=== PATIENT | male | born 1985 ===

== ENCOUNTER 2016-12-26 23:21 | Emergency (ER) | payer OTHER ==
--- NOTE | 2016-12-27 01:26 | ED NURSING NOTES ---
Clinical Report - Nurses [facility] [address] [place] [address] 12/26/2016 23:23 Patient: BRADLEY GUERIN TRIAGE Triage time 23:26. Acuity: LEVEL 3. Chief Complaint: INJURY TO THE LEFT SHOULDER. 23:30. Alert. SEPSIS SCREEN: Sepsis Screen. Negative (no infection suspected/documented). CHRISTIAN COMA SCORE: [place] Coma Scale: 15- eyes open spontaneously (4); best verbal response- oriented x 4 (5); best motor response- obeys commands (6). --23:30 Addison Loar R.N. 23:26 12/26/16. BP: 155/52. HR: 95. RR: 18. O2 saturation: 100% on room air. Temp: 97.4 F (oral). Pain level now: 04/14. --23:30 Addison Lora R.N. Weight: 90.7 kg stated. Height/Length: 66 inches Per Patient. BMI: 32.3. --23:30 Addison Lora R.N. Medications None. --23:29 Addison Lora R.N. Medication/allergy information source: the patient. --23:30 Addison Lora R.N. Allergies No Known Drug Allergy. --23:29 Addison Lora R.N. History Arrived by private vehicle. Historian: patient. Unaccompanied. Primary physician (None). This occurred (45 minutes ago). Mechanism of injury: (Was camping rolled onto shoulder in tent). ( Patient reports having the same shoulder dislocated in 201 3). 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 PAST MEDICAL HX: Tetanus status: up-to-date. Immunizations: up-to-date. SOCIAL HX: Current some days light tobacco smoker- less than 1/2 a pack per day. Occasional alcohol use. History of weekly drug use: marijuana. No infectious disease exposure. ABUSE ASSESSMENT: No report of abuse. FALL RISK ASSESSMENT: Fall risk assessment completed. No fall risk identified. NUTRITIONAL RISK ASSESSMENT: The nutritional risk assessment revealed no deficiencies. FUNCTIONAL ASSESSMENT: Functional assessment: no impairments noted. LEARNING NEEDS ASSESSMENT: The learning needs assessment revealed no barriers. SKIN INTEGRITY ASSESSMENT: Skin integrity risk assessment completed. No skin integrity risk identified. --23:30 Addison Lora R.N. PROBLEMS: no known problems. ADDITIONAL SURGERIES: no known surgeries. Interventions ID band on patient. To treatment room. --23:30 Addison Lora R.N. PHYSICAL ASSESSMENT 23:31. To room via wheelchair. GENERAL / NEURO / PSYCH: Oriented X 4. Alert. Appears in pain. EXTREMITIES: Extremity pulses are within normal limits. Neuro-vascular status intact to the extremity. Left shoulder. SKIN: Skin intact. Skin is warm and dry. --23:31 Addison Lora R.N. NURSING PROGRESS NOTES 23:31. Two patient identifiers checked. Call light placed in reach. Side rails up x 2. Bed placed in lowest position. Brakes of bed on. Patient ready for evaluation- chart flagged. --23:31 Addison Lora R.N. 23:36 12/26/2016 Site #1 started via IV in the right antecubital space with an 20g angiocath, with aseptic technique and good blood return; one attempt. Blood drawn: rainbow set. Labeled in the presence of the patient and sent to the lab. Saline lock flushed with 10 mL saline (by Addison HOPE). --23:36 Addison Lora R.N. 23:38 12/26/2016 Started bag #1 1000 mL IV Fluids IV NS (Saline); at 1000 mL/hr over 1 hour(s) via site #1 --23:43 Addison Lora R.N. 23:40 12/26/2016 Zofran (Ondansetron HCl) IVP 4 mg given over 2 minute(s) via site #1. Allergies verified and confirmed 5 rights. IV patency established. IV site checked: no pain, redness, or swelling. IV flushed thoroughly pre- and post-medication administration. --23:44 Addison Lora R.N. 23:42 12/26/2016 Dilaudid (HYDROmorphone HCl PF) IVP 1 mg given over 2 minute(s) via site #1. Allergies verified, confirmed 5 rights and sedative warning given to the patient. IV patency established. IV site checked: no pain, redness, or swelling. IV flushed thoroughly pre- and post-medication administration. --23:44 Addison Lora R.N. 23:44 Patient reports last meal at about 1730. --23:44 Addison Lora R.N. 23:44. Patient transported to radiology by stretcher with tech. --23:45 Addison Lora R.N. 23:52. Patient returned from radiology by stretcher with tech. --23:52 Addison Lora R.N. 00:08 12/27/2016 Dilaudid (HYDROmorphone HCl PF) IVP 0.5 mg given. via site #1. Allergies verified, confirmed 5 rights and sedative warning given to the patient. IV patency established. IV site checked: no pain, redness, or swelling. IV flushed thoroughly pre- and post-medication administration. --00:20 Addison Lora R.N. 00:19 12/27/2016 Dilaudid (HYDROmorphone HCl PF) IVP 0.5 mg given over 2 minute(s) via site #1. Allergies verified, confirmed 5 rights and sedative warning given. IV patency established. IV site checked: no pain, redness, or swelling. IV flushed thoroughly pre- and post-medication administration. IVP given by RN. --00:24 Addison Rosales R.N. ( Pt repositioned for comfort, head of bed reclined.). --00:38 Wanda Medina R.N. 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 --00:53 Addison Lora R.N. 00:43 See anesthesia record. --00:55 Addison Lora R.N. 00:51 12/27/2016 IV Fluids IV NS Bag Change: bag #1 infused. Total amount infused: 1000. STARTED bag #2 at 1000 mL/hr. IV patency established. IV site checked: no pain, redness, or swelling. IV flushed thoroughly. (per verbal order). --00:58 Addison Lora R.N. 00:[address] Adams. --01:01 Addison Lora R.N. 01:01 12/27/16. BP: 121/74. HR: 102. RR: 17. O2 saturation: 98% on nasal cannula at 2 liters/minute. --01:02 Addison Lora R.N. 01:04 Post reduction x-ray taken. --01:04 Addison Lora R.N. 01:17 12/27/16. BP: 111/52. HR: 98. RR: 17. O2 saturation: 97%. Pain level now: . --01:20 Addison Lora R.N. 01:26 Patient given water to drink. --01:40 Addison Lora R.N. 6 inch obi bandage applied to left arm by tech; distal pulses intact, sensation intact and motor function within normal limits. Sling applied to left arm by technician assistant; distal pulses intact, sensation intact and motor function within normal limits. --01:57 Jamie Mirza R.N. 01:55. The patient is calm and resting quietly. GENERAL / NEURO / PSYCH: Alert. Oriented X 4. RESPIRATORY: No respiratory distress. EXTREMITIES: Neuro-vascular status intact to the extremity. SKIN: Skin is warm and dry. --02:09 Addison Lora R.N. 01:56 12/27/2016 IV Fluids IV NS Discontinued: bag #2 infused upon discharge. Total amount infused: 975 mL. IV patency established. IV site checked: no pain, redness, or swelling. IV flushed thoroughly. --02:11 Addison Lora R.N. DISPOSITION / DISCHARGE 01:35 12/27/2016 Site #1 removed upon discharge. Catheter intact. Bandage applied. --01:40 Addison Lora R.N. FALL RISK ASSESSMENT: Fall risk assessment completed. No fall risk identified. --01:44 Addison Lora R.N. 01:33 12/27/16. BP: 105/72. HR: 96. RR: 16. O2 saturation: 99% on room air. Pain level now: 07/15. --01:44 Addison Lora R.N. Departure time: 02:02. Condition at departure: improved and stable. No learning barriers present. Discharge instructions provided and reviewed with the patient. Patient verbalized understanding. Written instructions provided in Bulgarian. The patient was discharged home and unaccompanied at time of discharge. He left the Emergency Department ambulatory and via taxi. FALL RISK ASSESSMENT: Fall risk assessment completed. No fall risk identified. --02:09 Addison Lora R.N. Locked/Released at 12/27/2016 2:22 by Addison Lora R.N.
--- NOTE | 2016-12-27 01:26 | ED CLINICAL REPORT ---
Clinical Report - Physicians/Mid Levels [facility] [address] [place] [address] 12/26/2016 23:23 Patient: BRADLEY GUERIN Time Seen: 23:46. Arrived- By private vehicle. Historian- patient. HISTORY OF PRESENT ILLNESS Chief Complaint: Injury to left shoulder. The injury happened just prior to arrival. Twisting injury. Occurred in the mountains. Patient is experiencing severe pain. No other injury. ( The patient was in the mountains on a [place] trip. He rolled over onto his left shoulder and felt a popping sensation he now feels that he has difficulty moving his arm. He also reports severe pain in the shoulder. He has had one prior similar event where his shoulder was dislocated.). REVIEW OF SYSTEMS The patient has had new onset of weakness of the left upper arm (severe). No swelling, tingling or numbness. All systems otherwise negative, except as recorded above. SOCIAL HISTORY Current every day light tobacco smoker (cigarette)- less than 1/2 a pack per day. Occasional alcohol use. History of weekly drug use: marijuana. Residence: [place] he lives alone. FAMILY HISTORY No significant family medical history. ADDITIONAL NOTES The nursing notes have been reviewed. PHYSICAL EXAM Vital Signs: 12/26/2016 23:26 BP: 155/52. HR: 95. RR: 18. O2 saturation: 100%. Temp: 97.4 F. Pain level now: 04/14. Have been reviewed. Appearance: Alert. Appears to be in pain. Head: Head atraumatic. Eyes: Pupils equal, round and reactive to light. ENT: Pharynx normal. Neck: Neck supple. CVS: Normal heart rate and rhythm. Heart sounds normal. Respiratory: No respiratory distress. Breath sounds normal. Abdomen: No visible injury. Soft and nontender. Bowel sounds normal. No organomegaly. No mass. Back: Normal inspection. Skin: Skin warm and dry. Normal skin color. Normal skin turgor. Extremities: Left shoulder: deformity consistent with a shoulder dislocation. Limited ROM due to pain (diminished flexion and external rotation). Neurovascular intact distally. Neuro, Vascular and Tendons: Sensation intact. Motor intact. Vascular status intact. Neuro: No motor deficit. No sensory deficit. LABS, X-RAYS, AND EKG Lt Shoulder X-ray: (IMPRESSION: 1. Anterior left shoulder dislocation with Hill-Sachs deformity.). The X-rays were interpreted by the radiologist and contemporaneously by me. Post procedure films: (Reduced shoulder dislocation with Hill-Sachs deformity.). PROGRESS AND PROCEDURES Procedural Sedation: ( Performed by the nurse director script - please refer to her notes for further details). Reduction of Dislocated Shoulder: Time-out completed immediately before the procedure. The left shoulder was reduced using scapular manipulation technique and external rotation technique. Reassessed post-procedure. Deltoid sensation normal. Exam indicated reduction. Confirmed reduction on X-ray. Arm sling applied. Patient/family counseled. Old medical records ordered. Old records unavailable. Disposition: Discharged. Condition: stable. CLINICAL IMPRESSION Left anterior shoulder dislocation. Reduction in the ER. INSTRUCTIONS Apply ice for 20 minutes four times a day. Don't apply ice directly to skin and don't use while asleep. Wear simple sling until released. No driving or operating machinery while taking medication. Sedative medication was given during your visit. Warnings: COMPLICATIONS: Complications from this condition include: possible injury to a ligament. Future problems may include loss of function, pain and deformity. It is important to follow up with a physician for further evaluation and treatment. GENERAL WARNINGS: Return or contact your physician immediately if your condition worsens or changes unexpectedly, if not improving as expected, or if other problems arise. Follow-up: Follow up with your doctor Thursday in three days. Call for an appointment. Understanding of the discharge instructions verbalized by patient. (Electronically signed by Angel Adams MD 01/15/2017 18:09)
--- NOTE | 2016-12-27 01:26 | ED NURSING NOTES ---
Clinical Report - Nurses [facility] [address] [place] [address] 12/26/2016 23:23 Patient: BRADLEY GUERIN TRIAGE Triage time 23:26. Acuity: LEVEL 3. Chief Complaint: INJURY TO THE LEFT SHOULDER. 23:30. Alert. SEPSIS SCREEN: Sepsis Screen. Negative (no infection suspected/documented). CHRISTIAN COMA SCORE: [place] Coma Scale: 15- eyes open spontaneously (4); best verbal response- oriented x 4 (5); best motor response- obeys commands (6). --23:30 Addison Lora R.N. 23:26 12/26/16. BP: 155/52. HR: 95. RR: 18. O2 saturation: 100% on room air. Temp: 97.4 F (oral). Pain level now: 04/14. --23:30 Addison Lora R.N. Weight: 90.7 kg stated. Height/Length: 66 inches Per Patient. BMI: 32.3. --23:30 Addison Lora R.N. Medications None. --23:29 Addison Lora R.N. Medication/allergy information source: the patient. --23:30 Addison Lora R.N. Allergies No Known Drug Allergy. --23:29 Addison Lora R.N. History Arrived by private vehicle. Historian: patient. Unaccompanied. Primary physician (None). This occurred (45 minutes ago). Mechanism of injury: (Was camping rolled onto shoulder in tent). ( Patient reports having the same shoulder dislocated in 201 3). 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 PAST MEDICAL HX: Tetanus status: up-to-date. Immunizations: up-to-date. SOCIAL HX: Current some days light tobacco smoker- less than 1/2 a pack per day. Occasional alcohol use. History of weekly drug use: marijuana. No infectious disease exposure. ABUSE ASSESSMENT: No report of abuse. FALL RISK ASSESSMENT: Fall risk assessment completed. No fall risk identified. NUTRITIONAL RISK ASSESSMENT: The nutritional risk assessment revealed no deficiencies. FUNCTIONAL ASSESSMENT: Functional assessment: no impairments noted. LEARNING NEEDS ASSESSMENT: The learning needs assessment revealed no barriers. SKIN INTEGRITY ASSESSMENT: Skin integrity risk assessment completed. No skin integrity risk identified. --23:30 Addison Lora R.N. PROBLEMS: no known problems. ADDITIONAL SURGERIES: no known surgeries. Interventions ID band on patient. To treatment room. --23:30 Addison Lora R.N. PHYSICAL ASSESSMENT 23:31. To room via wheelchair. GENERAL / NEURO / PSYCH: Oriented X 4. Alert. Appears in pain. EXTREMITIES: Extremity pulses are within normal limits. Neuro-vascular status intact to the extremity. Left shoulder. SKIN: Skin intact. Skin is warm and dry. --23:31 Addison Lora R.N. NURSING PROGRESS NOTES 23:31. Two patient identifiers checked. Call light placed in reach. Side rails up x 2. Bed placed in lowest position. Brakes of bed on. Patient ready for evaluation- chart flagged. --23:31 Addison Lora R.N. 23:36 12/26/2016 Site #1 started via IV in the right antecubital space with an 20g angiocath, with aseptic technique and good blood return; one attempt. Blood drawn: rainbow set. Labeled in the presence of the patient and sent to the lab. Saline lock flushed with 10 mL saline (by Addison HOPE). --23:36 Addison Lora R.N. 23:38 12/26/2016 Started bag #1 1000 mL IV Fluids IV NS (Saline); at 1000 mL/hr over 1 hour(s) via site #1 --23:43 Addison Lora R.N. 23:40 12/26/2016 Zofran (Ondansetron HCl) IVP 4 mg given over 2 minute(s) via site #1. Allergies verified and confirmed 5 rights. IV patency established. IV site checked: no pain, redness, or swelling. IV flushed thoroughly pre- and post-medication administration. --23:44 Addison Lora R.N. 23:42 12/26/2016 Dilaudid (HYDROmorphone HCl PF) IVP 1 mg given over 2 minute(s) via site #1. Allergies verified, confirmed 5 rights and sedative warning given to the patient. IV patency established. IV site checked: no pain, redness, or swelling. IV flushed thoroughly pre- and post-medication administration. --23:44 Addison Lora R.N. 23:44 Patient reports last meal at about 1730. --23:44 Addison Lora R.N. 23:44. Patient transported to radiology by stretcher with tech. --23:45 Addison Lora R.N. 23:52. Patient returned from radiology by stretcher with tech. --23:52 Addison Lora R.N. 00:08 12/27/2016 Dilaudid (HYDROmorphone HCl PF) IVP 0.5 mg given. via site #1. Allergies verified, confirmed 5 rights and sedative warning given to the patient. IV patency established. IV site checked: no pain, redness, or swelling. IV flushed thoroughly pre- and post-medication administration. --00:20 Addison Lora R.N. 00:19 12/27/2016 Dilaudid (HYDROmorphone HCl PF) IVP 0.5 mg given over 2 minute(s) via site #1. Allergies verified, confirmed 5 rights and sedative warning given. IV patency established. IV site checked: no pain, redness, or swelling. IV flushed thoroughly pre- and post-medication administration. IVP given by RN. --00:24 Addison Rosales R.N. ( Pt repositioned for comfort, head of bed reclined.). --00:38 Wanda Medina R.N. 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 --00:53 Addison Lora R.N. 00:43 See anesthesia record. --00:55 Addison Lora R.N. 00:51 12/27/2016 IV Fluids IV NS Bag Change: bag #1 infused. Total amount infused: 1000. STARTED bag #2 at 1000 mL/hr. IV patency established. IV site checked: no pain, redness, or swelling. IV flushed thoroughly. (per verbal order). --00:58 Addison Lora R.N. 00:[address] Adams. --01:01 Addison Lora R.N. 01:01 12/27/16. BP: 121/74. HR: 102. RR: 17. O2 saturation: 98% on nasal cannula at 2 liters/minute. --01:02 Addison Lora R.N. 01:04 Post reduction x-ray taken. --01:04 Addison Lora R.N. 01:17 12/27/16. BP: 111/52. HR: 98. RR: 17. O2 saturation: 97%. Pain level now: . --01:20 Addison Lora R.N. 01:26 Patient given water to drink. --01:40 Addison Lora R.N. 6 inch obi bandage applied to left arm by tech; distal pulses intact, sensation intact and motor function within normal limits. Sling applied to left arm by biology specimen technician; distal pulses intact, sensation intact and motor function within normal limits. --01:57 Jamie Mirza R.N. 01:55. The patient is calm and resting quietly. GENERAL / NEURO / PSYCH: Alert. Oriented X 4. RESPIRATORY: No respiratory distress. EXTREMITIES: Neuro-vascular status intact to the extremity. SKIN: Skin is warm and dry. --02:09 Addison Lora R.N. 01:56 12/27/2016 IV Fluids IV NS Discontinued: bag #2 infused upon discharge. Total amount infused: 975 mL. IV patency established. IV site checked: no pain, redness, or swelling. IV flushed thoroughly. --02:11 Addison Lora R.N. DISPOSITION / DISCHARGE 01:35 12/27/2016 Site #1 removed upon discharge. Catheter intact. Bandage applied. --01:40 Addison Lora R.N. FALL RISK ASSESSMENT: Fall risk assessment completed. No fall risk identified. --01:44 Addison Lora R.N. 01:33 12/27/16. BP: 105/72. HR: 96. RR: 16. O2 saturation: 99% on room air. Pain level now: 07/15. --01:44 Addison Lora R.N. Departure time: 02:02. Condition at departure: improved and stable. No learning barriers present. Discharge instructions provided and reviewed with the patient. Patient verbalized understanding. Written instructions provided in Telugu. The patient was discharged home and unaccompanied at time of discharge. He left the Emergency Department ambulatory and via taxi. FALL RISK ASSESSMENT: Fall risk assessment completed. No fall risk identified. --02:09 Addison Lora R.N. Locked/Released at 12/27/2016 2:22 by Addison Lora R.N.
--- NOTE | 2016-12-27 01:26 | ED CLINICAL REPORT ---
Clinical Report - Physicians/Mid Levels [facility] [address] [place] [address] 12/26/2016 23:23 Patient: BRADLEY GUERIN Time Seen: 23:46. Arrived- By private vehicle. Historian- patient. HISTORY OF PRESENT ILLNESS Chief Complaint: Injury to left shoulder. The injury happened just prior to arrival. Twisting injury. [place]urred in the mountains. Patient is experiencing severe pain. No other injury. ( The patient was in the mountains on a [place]. He rolled over onto his left shoulder and felt a popping sensation he now feels that he has difficulty moving his arm. He also reports severe pain in the shoulder. He has had one prior similar event where his shoulder was dislocated.). REVIEW OF SYSTEMS The patient has had new onset of weakness of the left upper arm (severe). No swelling, tingling or numbness. All systems otherwise negative, except as recorded above. SOCIAL HISTORY Current every day light tobacco smoker (cigarette)- less than 1/2 a pack per day. Occasional alcohol use. History of weekly drug use: marijuana. Residence: [place] he lives alone. FAMILY HISTORY No significant family medical history. ADDITIONAL NOTES The nursing notes have been reviewed. PHYSICAL EXAM Vital Signs: 12/26/2016 23:26 BP: 155/52. HR: 95. RR: 18. O2 saturation: 100%. Temp: 97.4 F. Pain level now: 04/14. Have been reviewed. Appearance: Alert. Appears to be in pain. Head: Head atraumatic. Eyes: Pupils equal, round and reactive to light. ENT: Pharynx normal. Neck: Neck supple. CVS: Normal heart rate and rhythm. Heart sounds normal. Respiratory: No respiratory distress. Breath sounds normal. Abdomen: No visible injury. Soft and nontender. Bowel sounds normal. No organomegaly. No mass. Back: Normal inspection. Skin: Skin warm and dry. Normal skin color. Normal skin turgor. Extremities: Left shoulder: deformity consistent with a shoulder dislocation. Limited ROM due to pain (diminished flexion and external rotation). Neurovascular intact distally. Neuro, Vascular and Tendons: Sensation intact. Motor intact. Vascular status intact. Neuro: No motor deficit. No sensory deficit. LABS, X-RAYS, AND EKG Lt Shoulder X-ray: (IMPRESSION: 1. Anterior left shoulder dislocation with Hill-Sachs deformity.). The X-rays were interpreted by the radiologist and contemporaneously by me. Post procedure films: (Reduced shoulder dislocation with Hill-Sachs deformity.). PROGRESS AND PROCEDURES Procedural Sedation: ( Performed by the nurse mailing section clerk - please refer to her notes for further details). Reduction of Dislocated Shoulder: Time-out completed immediately before the procedure. The left shoulder was reduced using scapular manipulation technique and external rotation technique. Reassessed post-procedure. Deltoid sensation normal. Exam indicated reduction. Confirmed reduction on X-ray. Arm sling applied. Patient/family counseled. Old medical records ordered. Old records unavailable. Disposition: Discharged. Condition: stable. CLINICAL IMPRESSION Left anterior shoulder dislocation. Reduction in the ER. INSTRUCTIONS Apply ice for 20 minutes four times a day. Don't apply ice directly to skin and don't use while asleep. Wear simple sling until released. No driving or operating machinery while taking medication. Sedative medication was given during your visit. Warnings: COMPLICATIONS: Complications from this condition include: possible injury to a ligament. Future problems may include loss of function, pain and deformity. It is important to follow up with a physician for further evaluation and treatment. GENERAL WARNINGS: Return or contact your physician immediately if your condition worsens or changes unexpectedly, if not improving as expected, or if other problems arise. Follow-up: Follow up with your doctor Thursday in three days. Call for an appointment. Understanding of the discharge instructions verbalized by patient. (Electronically signed by Angel Adams MD 01/15/2017 18:09)
--- NOTE | 2016-12-27 01:26 | ED ORDER SUMMARY ---
..... Patient: BRADLEY GUERIN OrderSheet [facility] VisitID: [id number] [place] [address] 31y, M Registration Date/Time: 12/26/2016 ORDER SHEET Weight: 90.7 kg (stated) Allergies: No Known Drug Allergy GENERAL ORDERS: Shoulder 2V or more Left Urgent (23:32 12/26/2016 JQuivey R.N. per protocol) (Ack 23:33 IJurca ER Tech1) (23:52 Brigida) Shoulder 2V or more Left Urgent (00:54 12/27/2016 JQuivey R.N. verbal order read back to Luis KEARNS) (1:11 JQuivey R.N.) MEDICATION ORDERS: IV FLUIDS: IV Saline Lock (23:36 12/26/2016 JQuivey R.N. per protocol) (23:37 JQuivey R.N.) Dilaudid IV 1 mg (HIGH ALERT MEDICATION, NOW) (23:40 12/26/2016 Luis KEARNS) (23:44 JQuivey R.N.) Zofran IV 4 mg (NOW) (23:40 12/26/2016 Luis KEARNS) (23:44 JQuivey R.N.) IV NS : initial bolus none -, then 1000 mL/hr (NOW) (23:43 12/26/2016 JQuivey R.N. per protocol) (23:43 JQuivey R.N.) Dilaudid IV 0.5 mg (NOW) (00:19 12/27/2016 JQuivey R.N. verbal order read back to Luis KEARNS) (0:20 JQuivey R.N.) Dilaudid IV 0.5 mg (NOW) (00:20 12/27/2016 JQuivekalen R.N. verbal order read back to Luis KEARNS) (0:24 JRomanelli R.N.) ORDER SHEET NOTES: [Electronically signed by Addison Lora R.N. (02:22 12/27/2016)] [Electronically signed by Angel Adams MD (18:09 01/15/2017)] [Electronically locked/signed by Addison Lora R.N. (02:22 12/27/2016)]
--- NOTE | 2016-12-27 01:26 | ED ORDER SUMMARY ---
..... Patient: BRADELY GUERIN OrderSheet [facility] VisitID: [id number] [place] [address] 31y, M Registration Date/Time: 12/26/2016 ORDER SHEET Weight: 90.7 kg (stated) Allergies: No Known Drug Allergy GENERAL ORDERS: Shoulder 2V or more Left Urgent (23:32 12/26/2016 JQuivey R.N. per protocol) (Ack 23:33 IJurca ER Tech1) (23:52 Brigida) Shoulder 2V or more Left Urgent (00:54 12/27/2016 JQuivey R.N. verbal order read back to Luis KEARNS) (1:11 JQuivey R.N.) MEDICATION ORDERS: IV FLUIDS: IV Saline Lock (23:36 12/26/2016 JQuivey R.N. per protocol) (23:37 JQuivey R.N.) Dilaudid IV 1 mg (HIGH ALERT MEDICATION, NOW) (23:40 12/26/2016 Luis KEARNS) (23:44 JQuivey R.N.) Zofran IV 4 mg (NOW) (23:40 12/26/2016 Luis KEARNS) (23:44 JQuivey R.N.) IV NS : initial bolus none -, then 1000 mL/hr (NOW) (23:43 12/26/2016 JQuivey R.N. per protocol) (23:43 JQuivey R.N.) Dilaudid IV 0.5 mg (NOW) (00:19 12/27/2016 JQuivey R.N. verbal order read back to Luis KEARNS) (0:20 JQuivey R.N.) Dilaudid IV 0.5 mg (NOW) (00:20 12/27/2016 JQuivekalen R.N. verbal order read back to Luis KEARNS) (0:24 JRomanelli R.N.) ORDER SHEET NOTES: [Electronically signed by Addison Lora R.N. (02:22 12/27/2016)] [Electronically signed by Angel Adams MD (18:09 01/15/2017)] [Electronically locked/signed by Addison Lora R.N. (02:22 12/27/2016)]
--- NOTE | 2016-12-27 06:45 | DIAGNOSTIC IMAGING REPORT ---
PROCEDURE: XR SHOULDER 2 OR MORE VW-LEFT INDICATION: POST REDUCTION TECHNIQUE: Two views. COMPARISON: Left shoulder x-ray 12/26/2016. FINDINGS: Reduced anterior shoulder dislocation with Hill-Sachs deformity. Soft tissues are unremarkable. IMPRESSION: 1. Reduced shoulder dislocation with Hill-Sachs deformity.
--- NOTE | 2016-12-27 06:51 | DIAGNOSTIC IMAGING REPORT ---
PROCEDURE: XR SHOULDER 2 OR MORE VW-LEFT INDICATION: TRAUMA/INJURY TECHNIQUE: Two views. COMPARISON: None. FINDINGS: Anterior shoulder dislocation with Hill-Sachs deformity. Soft tissues are unremarkable. IMPRESSION: 1. Anterior left shoulder dislocation with Hill-Sachs deformity.
--- NOTE | 2017-01-15 18:10 | ED DISCHARGE INSTRUCTIONS ---
Patient: BRADLEY GUERIN General Instructions [facility] VisitID: [id number] [place] [address] 31y, M Registration Date/Time: 12/26/2016 Left anterior shoulder dislocation. Reduction in the ER. INSTRUCTIONS Apply ice for 20 minutes four times a day. Don't apply ice directly to skin and don't use while asleep. Wear simple sling until released. No driving or operating machinery while taking medication. Sedative medication was given during your visit. Warnings: COMPLICATIONS: Complications from this condition include: possible injury to a ligament. Future problems may include loss of function, pain and deformity. It is important to follow up with a physician for further evaluation and treatment. GENERAL WARNINGS: Return or contact your physician immediately if your condition worsens or changes unexpectedly, if not improving as expected, or if other problems arise. Follow-up: Follow up with your doctor Thursday in three days. Call for an appointment. Understanding of the discharge instructions verbalized by patient. ADDITIONAL INFORMATION Dislocation: Shoulder (Reduced) Dislocation of the shoulder joint occurs when a strong force tears the ligaments holding the joint together. This allows the bones to move apart and become stuck out of place. Once the joint is aligned again, it will take about six weeks for the ligaments to heal. Since this injury may weaken the ligaments, you are at risk of another dislocation with less force. Therefore, care should be taken to avoid a similar injury in the future. Shoulder dislocation is treated with a shoulder immobilizer (special type of arm sling). This keeps your arm close to your body to prevent a recurrent dislocation while the ligaments heal. After a few weeks, an exercise program may be started. This will gradually restore range of motion and strength at the shoulder and decrease the risk of another dislocation. Home Care: Until your next doctor visit, wear your shoulder immobilizer at all times . Do not take it off at night to sleep. It is possible to dislocate your arm again in your sleep. You may take it off to bathe or dress, but do not move your arm away from your body. Keep your arm in the same position that the sling was holding it in, until you reapply the sling again. During your next visit, ask your doctor how long you should wear the sling. Apply an ice pack (ice cubes in a plastic bag, wrapped in a towel) over the injured area for 20 minutes every 1-2 hours the first day. Continue with ice packs 3-4 times a day for the next two days, then as needed for the relief of pain and swelling. You may use acetaminophen (Tylenol) or ibuprofen (Motrin, Advil) to control pain, unless another pain medicine was prescribed. [NOTE: If you have chronic liver or kidney disease or ever had a stomach ulcer or GI bleeding, talk with your doctor before using these medicines.] No sports or P.E. until cleared by your doctor. Follow Up with your doctor within one week or as advised by our staff. Shoulder immobilizers and slings should not be worn continuously for more than a few weeks or you may lose some [id number] at the shoulder joint. If you have had repeated dislocations of the same shoulder, that means there has been permanent ligament damage. Ask the orthopedic doctor about surgery to prevent another dislocation. Get Prompt Medical Attention if any of the following occur: Another dislocation of your shoulder Increasing swelling or pain in the shoulder or arm Fingers become cold, blue, numb or tingly Sling & Swathe A sling & swathe is designed to support your arm and hold it closely against your body. It is used for injuries where excess movement of the shoulder joint could cause harmfor example, after a shoulder dislocation or shoulder fracture. A joint that is immobilized too long can become stiff and lose range of motion. Follow-up with your doctor as advised and do not use the sling longer than directed. Home Use: Leave the sling & swathe in place as long as directed by your doctor. Unless told otherwise, you should sleep with it in place. If you are being treated for a shoulder dislocation, you may take the sling & swathe off to bathe or dress, but do not try to raise your arm away from your body. Reapply the immobilizer as soon as possible. If you are being treated for a shoulder fracture, leave the sling & swathe in place until your next exam. The sling & swathe is adjustable. If it becomes loose, adjust the sling so that your forearm is horizontal (level with the ground). Your hand should be level with the elbow. Adjust the swathe (the part that wraps around your body) so that your arm is held snugly against your body. You have been given the following additional information: Dislocation: Shoulder (Reduced) Sling And Swathe No driving or operating machinery while taking medication. Sedative medication was given during your visit. (Electronically signed by Angel Adams MD 01/15/2017 18:09)
--- NOTE | 2017-01-15 18:10 | ED MAR SUMMARY ---
..... Medication Administration Record [facility] [address] [place] [address] Patient: BRADLEY GUERIN Visit ID: [id number] 31y, M Weight: 90.7 kg Height/Length: 66 in BMI: 32.3 ALLERGIES: No Known Drug Allergy Start 23:38 12/26/2016 Addison Lora R.N., Stop 01:56 12/27/2016 Addison Lora R.N. Medication Administered: IV NS (SALINE), Dose: IV Fluids over 1 hour(s), Rate: 1000 mL/hr, Dispensed: 1000 mL bag, Site: #1 right AC. Medication Ordered: IV NS : initial bolus none -, then 1000 mL/hr (NOW). Given 23:40 12/26/2016 Addison Lora R.N. Medication Administered: ZOFRAN [IVP] (ONDANSETRON HCL), Dose: 4 mg IVP over 2 minute(s), Site: #1 right AC. Medication Ordered: Zofran IV 4 mg (NOW). Given 23:42 12/26/2016 Addison Lora R.N. Medication Administered: DILAUDID [IVP] (HYDROMORPHONE HCL PF), Dose: 1 mg IVP over 2 minute(s), Site: #1 right AC. Medication Ordered: Dilaudid IV 1 mg (HIGH ALERT MEDICATION, NOW). Given 00:08 12/27/2016 Addison Lora R.N. Medication Administered: DILAUDID [IVP] (HYDROMORPHONE HCL PF), Dose: 0.5 mg IVP, Site: #1 right AC. Medication Ordered: Dilaudid IV 0.5 mg (NOW). Given 00:19 12/27/2016 Addison Rosales R.N. Medication Administered: DILAUDID [IVP] (HYDROMORPHONE HCL PF), Dose: 0.5 mg IVP over 2 minute(s), Site: #1 right AC. Medication Ordered: Dilaudid IV 0.5 mg (NOW).
--- NOTE | 2017-01-15 18:10 | ED MAR SUMMARY ---
..... Medication Administration Record Merg[facility] With [facility] [address] [place] [address] Patient: BRADLEY GUERIN Visit ID: [id number] 31y, M Weight: 90.7 kg Height/Length: 66 in BMI: 32.3 ALLERGIES: No Known Drug Allergy Start 23:38 12/26/2016 Addison Lora R.N., Stop 01:56 12/27/2016 Addison Lora R.N. Medication Administered: IV NS (SALINE), Dose: IV Fluids over 1 hour(s), Rate: 1000 mL/hr, Dispensed: 1000 mL bag, Site: #1 right AC. Medication Ordered: IV NS : initial bolus none -, then 1000 mL/hr (NOW). Given 23:40 12/26/2016 Addison Lora R.N. Medication Administered: ZOFRAN [IVP] (ONDANSETRON HCL), Dose: 4 mg IVP over 2 minute(s), Site: #1 right AC. Medication Ordered: Zofran IV 4 mg (NOW). Given 23:42 12/26/2016 Addison Lora R.N. Medication Administered: DILAUDID [IVP] (HYDROMORPHONE HCL PF), Dose: 1 mg IVP over 2 minute(s), Site: #1 right AC. Medication Ordered: Dilaudid IV 1 mg (HIGH ALERT MEDICATION, NOW). Given 00:08 12/27/2016 Addison Lora R.N. Medication Administered: DILAUDID [IVP] (HYDROMORPHONE HCL PF), Dose: 0.5 mg IVP, Site: #1 right AC. Medication Ordered: Dilaudid IV 0.5 mg (NOW). Given 00:19 12/27/2016 Addison Rosales R.N. Medication Administered: DILAUDID [IVP] (HYDROMORPHONE HCL PF), Dose: 0.5 mg IVP over 2 minute(s), Site: #1 right AC. Medication Ordered: Dilaudid IV 0.5 mg (NOW).
--- NOTE | 2017-01-15 18:10 | ED MED RECONCILIATION SUMMARY ---
Patient: BRADLEY GUERIN Medication Reconciliation Report [facility] VisitID: [id number] [address] [place] [address] 31y, M Registration Date/Time: 12/26/2016 Weight: 90.7 kg Height/Length: 66 in. BMI: 32.3 ALLERGIES: No Known Drug Allergy The patient's Home Medications are listed below: NONE. The source(s) of the original Home Medication information: patient The following Medications were given to the patient in the Emergency Department: IV NS IV Fluids bolus 0, then 1000 mL/hr, administered: 12/26/2016 11:38:00 PM Zofran [IVP] IVP 4 mg, administered: 12/26/2016 11:40:00 PM Dilaudid [IVP] IVP 1 mg, administered: 12/26/2016 11:42:00 PM Dilaudid [IVP] IVP 0.5 mg, administered: 12/27/2016 12:08:00 AM Dilaudid [IVP] IVP 0.5 mg, administered: 12/27/2016 12:19:00 AM The following Medications were prescribed to the patient: None.
--- NOTE | 2017-01-15 18:10 | ED MED RECONCILIATION SUMMARY ---
Patient: BRADLEY GUERIN Medication Reconciliation Report [facility] VisitID: [id number] [address] [place] [address] 31y, M Registration Date/Time: 12/26/2016 Weight: 90.7 kg Height/Length: 66 in. BMI: 32.3 ALLERGIES: No Known Drug Allergy The patient's Home Medications are listed below: NONE. The source(s) of the original Home Medication information: patient The following Medications were given to the patient in the Emergency Department: IV NS IV Fluids bolus 0, then 1000 mL/hr, administered: 12/26/2016 11:38:00 PM Zofran [IVP] IVP 4 mg, administered: 12/26/2016 11:40:00 PM Dilaudid [IVP] IVP 1 mg, administered: 12/26/2016 11:42:00 PM Dilaudid [IVP] IVP 0.5 mg, administered: 12/27/2016 12:08:00 AM Dilaudid [IVP] IVP 0.5 mg, administered: 12/27/2016 12:19:00 AM The following Medications were prescribed to the patient: None.
== END 2016-12-27 02:02 | disposition home or self-care (01) ==
LOC: ED SRH 23:21
DX: S43.005A Unspecified dislocation of left shoulder joint, initial encounter (principal); X50.1XXA Overexertion from prolonged static or awkward postures, initial encounter; Y93.89 Activity, other specified; Y99.9 Unspecified external cause status; Y92.833 Campsite as the place of occurrence of the external cause; Z72.0 Tobacco use